=== PATIENT | female | born 2000 | race African-American/Black ===

== ENCOUNTER 2021-10-18 11:43 | Emergency (ER) | payer MEDICAID ==
[~2021-10-18] VITALS: Ht 170.2 cm; Wt 59.0 kg
[2021-10-18] MEDS ORDERED: MORPHINE SULFATE 4 MG/ML CPJ (NOT FOR IM USE) IV STA (11:47)
[2021-10-18] MEDS ORDERED: ONDANSETRON HCL 4MG/2ML INJ IV STA (11:47)
[2021-10-18] MEDS ORDERED: SODIUM CHLORIDE 0.9% 1,000 ML IV ONE (12:00)
[2021-10-18 12:31] LABS: BASOPHILS % 0.4 % (0.0-2.0); EOSINOPHILS % 0.4 % (0.0-5.0); HEMATOCRIT. 37.1 % (36.0-48.0); HEMOGLOBIN. 12.2 g/dL (12.0-16.0); LYMPHOCYTES % 11.9 % (20.0-50.0); MEAN CORPUSCULAR HEMOGLOBIN 26.2 pg (28.0-32.0); MEAN CORPUSCULAR VOLUME 79.9 fL (81.0-99.0); MEAN PLATELET VOLUME 7.4 fl (7.4-10.4); MONOCYTES % 5.1 % (2.0-8.0); NEUTROPHILS % 82.2 % (40.0-76.0); PLATELET 363 x1000/uL (130-400); RED BLOOD CELL COUNT 4.64 mill/uL (4.2-5.4); RED CELL DISTRIBUTION WIDTH 19.2 % (11.6-14.6)
[2021-10-18 12:39] LABS: HCG SCREEN NEGATIVE
[2021-10-18 12:41] LABS: INR 1.1
[2021-10-18 12:44] LABS: CHLORIDE 104 mEq/L (98-107)
[2021-10-18] MEDS ORDERED: IOHEXOL-300 100 ML BOTTLE ONE (15:08)
[2021-10-18 15:15] VITALS: BP 110/66
== END 2021-10-18 15:20 | disposition left against medical advice (07) ==
LOC: ER 11:43
DX: S31.119A Laceration without foreign body of abdominal wall, unspecified quadrant without penetration into peritoneal cavity, initial encounter (principal); S36.029A Unspecified contusion of spleen, initial encounter; X99.9XXA Assault by unspecified sharp object, initial encounter; Y93.89 Activity, other specified; Y92.89 Other specified places as the place of occurrence of the external cause; Z98.890 Other specified postprocedural states
CPT/HCPCS: 36415; 74177; 80053; 81025; 84703; 85025; 85610; 96361; 96374; 96375; 99291; J2270; J2405; J7030; Q9967

== ENCOUNTER 2023-07-30 10:41 | Emergency (ER) | payer MEDICAID ==
[~2023-07-30] VITALS: Ht 167.6 cm; Wt 60.0 kg
[2023-07-30 11:02] VITALS: BP 121/83; PULSE 104; RESP 20; TEMP 98.3; O2SAT 99
[2023-07-30] MEDS ORDERED: GUAI600T26 MT (12:08)
== END 2023-07-30 12:41 | disposition home or self-care (01) ==
LOC: ER 10:41
DX: R05.9 Cough, unspecified (principal); Z98.890 Other specified postprocedural states; Z88.0 Allergy status to penicillin
CPT/HCPCS: 71045; 99283

== ENCOUNTER 2024-08-16 12:32 | Emergency (ER) | payer MEDICAID ==
[~2024-08-16] VITALS: Ht 170.2 cm; Wt 56.6 kg
[~2024-08-16 12:32] MED LIST: GUAI600T26 MT
[2024-08-16 12:38] VITALS: O2SAT 99
[2024-08-16] MEDS: IBUPROFEN 400MG TABLET PO ONE (13:31)
[2024-08-16] MEDS: ACETAMINOPHEN 325MG TABLET PO ONE (13:32)
[2024-08-16 15:06] VITALS: BP 105/70; PULSE 80; RESP 20; TEMP 36.7; O2SAT 99
== END 2024-08-16 15:06 | disposition home or self-care (01) ==
LOC: ER 13:42
DX: M54.2 Cervicalgia (principal); M25.512 Pain in left shoulder; R05.9 Cough, unspecified; R07.89 Other chest pain; Z88.0 Allergy status to penicillin; Y08.89XA Assault by other specified means, initial encounter; Y93.89 Activity, other specified; Y92.89 Other specified places as the place of occurrence of the external cause; Y99.8 Other external cause status
CPT/HCPCS: 73030; 76705; 81025; 99284; A4565